=== PATIENT | female | born 1990 | race Hispanic/Latino ===

== ENCOUNTER 2017-01-19 10:19 | Emergency (ER) | payer OTHER, MEDICARE ==
[~2017-01-19] VITALS: Ht 149.9 cm; Wt 68.2 kg
[~2017-01-19 10:19] MED LIST: ABILIFY30 MG OR; BACTRIM DS1 TAB PO; CELEXA20 MG OR; CIPROFLOXACN500 MG PO; CLONAZEPAM0.5 MG PO; DEPAKOTE ER250 MG PO; DIVALPROEX SOD250 M1 PO; FAMCICLOVIR500 MG PO; FLUOXETINE HCL40 MG PO; JOLESSA OR; LEXAPRO20 MG OR; LORTAB5 PO; MEDDOSEPAK PO; MOTRIN200 M1 OR; MOTRIN800 MG/TAB PO; NO; NO MEDS; OMEGA 3550 MG PO; PREVACID30 M2 OR; REGLAN10 MG OR; TORADOL OR; ZITHROMAX250 MG OR; ZOFRAN ODT4 MG OR; [UNRECOGNIZED DRUG - REMARK]
[2017-01-19] MEDS ORDERED: NAPROSYN500 MG PO (12:40)
[2017-01-19 12:57] VITALS: BP 128/80
== END 2017-01-19 13:09 | disposition home or self-care (01) | DRG 552 ==
LOC: ED 10:19
DX: S13.9XXA Sprain of joints and ligaments of unspecified parts of neck, initial encounter (principal); M79.631 Pain in right forearm; R51 Headache; V43.53XA Car driver injured in collision with pick-up truck in traffic accident, initial encounter; Y92.414 Local residential or business street as the place of occurrence of the external cause

== ENCOUNTER 2017-03-31 08:31 | Emergency (ER) | payer MEDICARE ==
[~2017-03-31] VITALS: Ht 149.9 cm; Wt 80.0 kg
[~2017-03-31 08:31] MED LIST changes: +NAPROSYN500 MG PO
[2017-03-31] MEDS ORDERED: OMEPRAZOLE20 M1 PO (08:44)
[2017-03-31 09:13] LABS: HEMATOCRIT 38.7 % (37.0-47.0); HEMOGLOBIN 13.2 g/dl (12.0-16.0); IMMATURE GRANULOCYTES 0.1 % (0.0-1.0); MEAN CELL VOLUME 88.2 fL CALC (80.0-100.0); MEAN CORPUSCULAR HGB 30.1 pG CALC (26.0-32.0); MEAN CORPUSCULAR HGB CONC 34.1 g/L CALC (32.0-36.0); NEUT# 4.73 thou/uL (2.00-7.15); RED BLOOD COUNT 4.39 mill/uL (4.20-5.60); RED CELL DISTRI WIDTH 12.4 % (11.5-15.5)
[2017-03-31 09:22] LABS: ALBUMIN 4.7 g/dL (3.2-5.0); ALKALINE PHOSPHATASE 97 u/l (38-126); AMYLASE 59 u/l (30-110); ANION GAP 20 (6-22 (CALC)); BILIRUBIN, TOTAL 0.3 mg/dL (0.0-1.4); BUN 11 mg/dL (7-17); BUN/CREATININE RATIO 24 (12-20 (CALC)); CALCIUM 9.7 mg/dL (8.4-10.2); CARBON DIOXIDE 23 mmol/l (22-30); CHLORIDE 105 mmol/l (95-108); CREATININE 0.5 mg/dL (0.5-1.0); GFR > 60 ML/MIN (>=60 (CALC)); GFR FOR AFR.AMER. > 60 ML/MIN (>=60 (CALC)); GLUCOSE 96 mg/dL (65-105); LIPASE 116 u/l (23-300); POTASSIUM 4.4 mmol/l (3.5-5.1); SGOT/AST 44 u/l (14-36); SGPT/ALT 36 u/l (9-52); SODIUM 143 mmol/l (137-146)
[2017-03-31 09:45] LABS: URINE BILIRUBIN - DIPSTICK NEGATIVE (NEGATIVE); URINE BLOOD DIPSTICK SMALL (NEGATIVE); URINE CLARITY CLEAR; URINE COLOR YELLOW; URINE GLUCOSE - DIPSTICK NEGATIVE (NEGATIVE); URINE KETONE NEGATIVE (NEGATIVE); URINE LEUK ESTERASE NEGATIVE (NEGATIVE); URINE NITRITE - DIPSTICK NEGATIVE (Negative); URINE PH 6.5 (4.5-8.0); URINE PROTEIN - DIPSTICK NEGATIVE (NEG-TRACE); URINE SPECIFIC GRAVITY 1.015; URINE UROBILINOGEN - DIPSTICK 0.2 E.U./dL (0.2)
[2017-03-31 09:47] LABS: URINE EPITHELIAL CELLS FEW EPI/hpf (0-FEW); URINE RBC 0-2 RBC/hpf (0-5)
[2017-03-31] MEDS ORDERED: PEPCID20 MG PO (10:51)
[2017-03-31 10:54] VITALS: BP 138/77
== END 2017-03-31 11:07 | disposition home or self-care (01) ==
LOC: ED 08:31
PROVIDERS: Emergency Medicine
DX: K29.70 Gastritis, unspecified, without bleeding (principal); F31.9 Bipolar disorder, unspecified; F20.9 Schizophrenia, unspecified; F43.10 Post-traumatic stress disorder, unspecified
CPT/HCPCS: Q9967; S0164

== ENCOUNTER 2017-07-08 13:29 | Emergency (ER) | payer OTHER, MEDICARE ==
[~2017-07-08] VITALS: Ht 149.9 cm; Wt 81.0 kg
[~2017-07-08 13:29] MED LIST changes: +OMEPRAZOLE20 M1 PO; +PEPCID20 MG PO
[2017-07-08 14:53] LABS: HEMATOCRIT 39.8 % (37.0-47.0); HEMOGLOBIN 13.3 g/dl (12.0-16.0); IMMATURE GRANULOCYTES 0.2 % (0.0-1.0); MEAN CELL VOLUME 86.7 fL CALC (80.0-100.0); MEAN CORPUSCULAR HGB CONC 33.4 g/L CALC (32.0-36.0); NEUT# 3.45 thou/uL (2.00-7.15); RED BLOOD COUNT 4.59 mill/uL (4.20-5.60); RED CELL DISTRI WIDTH 13.2 % (11.5-15.5)
[2017-07-08 15:13] LABS: ANION GAP 18 (6-22 (CALC)); BUN 11 mg/dL (7-17); BUN/CREATININE RATIO 20 (12-20 (CALC)); CALCIUM 10.5 mg/dL (8.4-10.2); CARBON DIOXIDE 23 mmol/l (22-30); CHLORIDE 107 mmol/l (95-108); CREATININE 0.6 mg/dL (0.5-1.0); GFR > 60 ML/MIN (>=60 (CALC)); GFR FOR AFR.AMER. > 60 ML/MIN (>=60 (CALC)); GLUCOSE 96 mg/dL (65-105); POTASSIUM 4.2 mmol/l (3.5-5.1); SODIUM 145 mmol/l (137-146)
[2017-07-08] MEDS ORDERED: HALOPERIDOL0.5 MG PO (15:20)
[2017-07-08] MEDS ORDERED: CLONAZEPAM0.5 MG PO (15:21)
[2017-07-08 16:53] VITALS: BP 128/68
== END 2017-07-08 17:02 | disposition home or self-care (01) | DRG 552 ==
LOC: ED 13:29
PROVIDERS: Family Medicine
DX: M54.2 Cervicalgia (principal); M79.605 Pain in left leg; R51 Headache; R10.11 Right upper quadrant pain; V43.52XA Car driver injured in collision with other type car in traffic accident, initial encounter; Y92.488 Other paved roadways as the place of occurrence of the external cause
CPT/HCPCS: Q9967

== ENCOUNTER 2018-03-24 21:33 | Emergency (ER) | payer MEDICARE ==
[~2018-03-24] VITALS: Ht 149.9 cm; Wt 74.0 kg
[~2018-03-24 21:33] MED LIST changes: +HALOPERIDOL0.5 MG PO
[2018-03-24] MEDS ORDERED: LORAZEPAM0.5 MG PO (21:50)
[2018-03-24] MEDS ORDERED: LAMICTAL150 M1 PO ×2 (21:52→21:54)
[2018-03-24] MEDS ORDERED: BUPROPION100 MG PO (21:55)
[2018-03-24 22:50] VITALS: BP 133/73
== END 2018-03-24 22:50 | disposition home or self-care (01) ==
LOC: ED 21:33
DX: F41.9 Anxiety disorder, unspecified (principal); F43.10 Post-traumatic stress disorder, unspecified; F31.9 Bipolar disorder, unspecified

== ENCOUNTER 2018-06-27 12:44 | Emergency (ER) | payer OTHER, MEDICARE ==
[~2018-06-27] VITALS: Ht 149.9 cm; Wt 80.0 kg
[~2018-06-27 12:44] MED LIST changes: +BUPROPION100 MG PO; +LAMICTAL150 M1 PO; +LORAZEPAM0.5 MG PO
[2018-06-27] MEDS ORDERED: LAMICTAL100 M1 PO (13:05)
[2018-06-27 13:35] LABS: HEMATOCRIT 35.8 % (37.0-47.0); HEMOGLOBIN 11.9 g/dl (12.0-16.0); IMMATURE GRANULOCYTES 0.2 % (0.0-5.0); MEAN CELL VOLUME 89.3 fL CALC (80.0-100.0); MEAN CORPUSCULAR HGB 29.7 pG CALC (26.0-32.0); MEAN CORPUSCULAR HGB CONC 33.2 g/L CALC (32.0-36.0); NEUT# 2.5 thou/uL (2.00-7.15); RED BLOOD COUNT 4.01 mill/uL (4.20-5.60); RED CELL DISTRI WIDTH 12.6 % (11.5-15.5)
[2018-06-27 13:41] LABS: ALBUMIN 4.1 g/dL (3.2-5.0); ALKALINE PHOSPHATASE 95 u/l (38-126); ANION GAP 16 (6-22 (CALC)); BILIRUBIN, TOTAL 0.3 mg/dL (0.0-1.4); BUN 12 mg/dL (7-17); BUN/CREATININE RATIO 21 (12-20 (CALC)); CARBON DIOXIDE 23 mmol/l (22-30); CHLORIDE 105 mmol/l (95-108); CREATININE 0.6 mg/dL (0.5-1.0); GFR > 60 ML/MIN (>=60 (CALC)); GFR FOR AFR.AMER. > 60 ML/MIN (>=60 (CALC)); LIPASE 88 u/l (23-300); POTASSIUM 4.1 mmol/l (3.5-5.1); SGOT/AST 26 u/l (14-36); SGPT/ALT 32 u/l (9-52); SODIUM 140 mmol/l (137-146); TOTAL PROTEIN 6.8 g/dL (6.3-8.2)
[2018-06-27 14:40] LABS: URINE BILIRUBIN - DIPSTICK NEGATIVE (NEGATIVE); URINE BLOOD DIPSTICK NEGATIVE (NEGATIVE); URINE CLARITY CLEAR; URINE COLOR YELLOW; URINE GLUCOSE - DIPSTICK NEGATIVE (NEGATIVE); URINE KETONE NEGATIVE (NEGATIVE); URINE LEUK ESTERASE TRACE (NEGATIVE); URINE NITRITE - DIPSTICK NEGATIVE (Negative); URINE PH 6.5 (4.5-8.0); URINE PROTEIN - DIPSTICK NEGATIVE (NEG-TRACE); URINE SPECIFIC GRAVITY <=1.005; URINE UROBILINOGEN - DIPSTICK 0.2 E.U./dL (0.2)
[2018-06-27 16:00] VITALS: BP 110/73
== END 2018-06-27 16:00 | disposition home or self-care (01) | DRG 563 ==
LOC: ED 12:44
PROVIDERS: Family Medicine
DX: S46.912A Strain of unspecified muscle, fascia and tendon at shoulder and upper arm level, left arm, initial encounter (principal); S46.911A Strain of unspecified muscle, fascia and tendon at shoulder and upper arm level, right arm, initial encounter; S29.012A Strain of muscle and tendon of back wall of thorax, initial encounter; F31.9 Bipolar disorder, unspecified; F43.10 Post-traumatic stress disorder, unspecified; F41.9 Anxiety disorder, unspecified; V43.53XA Car driver injured in collision with pick-up truck in traffic accident, initial encounter

== ENCOUNTER 2018-07-16 20:36 | Emergency (ER) | payer MEDICARE ==
[~2018-07-16] VITALS: Ht 149.9 cm; Wt 70.0 kg
[~2018-07-16 20:36] MED LIST changes: +LAMICTAL100 M1 PO
[2018-07-16 22:03] LABS: INFLUENZA A NONE DETECTED (NONE DETECT); INFLUENZA B NONE DETECTED (NONE DETECT)
[2018-07-16] MEDS ORDERED: FLONASE AL50 MCG/ACT (22:03)
[2018-07-16] MEDS ORDERED: MUCINEX600 MG PO (22:03)
[2018-07-16] MEDS ORDERED: CEPHALEXIN500 M1 PO (22:03)
[2018-07-16 22:14] VITALS: BP 125/71
== END 2018-07-16 22:19 | disposition home or self-care (01) ==
LOC: ED 20:36
PROVIDERS: Emergency Medicine
DX: J06.9 Acute upper respiratory infection, unspecified (principal); R05 Cough; R91.8 Other nonspecific abnormal finding of lung field; R09.81 Nasal congestion; H92.03 Otalgia, bilateral; J02.9 Acute pharyngitis, unspecified

== ENCOUNTER 2019-12-21 | Emergency (ER) | payer MEDICARE ==
[~2019-12-21] MED LIST changes: +CEPHALEXIN500 M1 PO; +FLONASE AL50 MCG/ACT; +MUCINEX600 MG PO
[2019-12-21] MEDS ORDERED: TESSALON PER100 MG PO (23:16)
[2019-12-21] MEDS ORDERED: ZITHROMAX250 MG PO (23:16)
== END 2019-12-22 00:15 | disposition home or self-care (01) ==
DX: J06.9 Acute upper respiratory infection, unspecified (principal)

== ENCOUNTER 2023-05-04 00:02 | Emergency (ER) | payer SELFPAY ==
[~2023-05-04] VITALS: Ht 149.9 cm; Wt 90.0 kg
[~2023-05-04 00:02] MED LIST changes: +TESSALON PER100 MG PO; +ZITHROMAX250 MG PO
[2023-05-04] MEDS ORDERED: LAMICTAL100 M1 PO (00:22)
[2023-05-04] MEDS ORDERED: VRAYLAR1.5 MG (00:23)
[2023-05-04] MEDS ORDERED: ATIVAN0.5 MG PO (00:23)
[2023-05-04] MEDS ORDERED: DIAZEPAM5 MG PO (00:23)
[2023-05-04] MEDS ORDERED: DIPHENHYDRAM50 M2 PO (01:25)
[2023-05-04] MEDS ORDERED: ULTRAM50 MG PO (01:25)
[2023-05-04] MEDS ORDERED: MEDDOSEPAK PO (01:25)
[2023-05-04 01:30] VITALS: BP 142/89
[2023-05-04 01:45] VITALS: BP 142/82
[2023-05-04 02:10] VITALS: BP 142/82
== END 2023-05-04 02:10 | disposition home or self-care (01) | DRG 607 ==
LOC: ED 00:02
DX: S60.561A Insect bite (nonvenomous) of right hand, initial encounter (principal); F31.9 Bipolar disorder, unspecified; F41.9 Anxiety disorder, unspecified; W57.XXXA Bitten or stung by nonvenomous insect and other nonvenomous arthropods, initial encounter